=== PATIENT | female | born 1960 | race Caucasian/White ===

== ENCOUNTER 2016-09-20 22:59 | Inpatient (IN) | payer MEDICAID ==
[~2016-09-20] VITALS: Ht 162.6 cm; Wt 96.3 kg
[2016-09-21] VITALS (10 sets, daily range): BP systolic 131–182; RESP 16–18; TEMP 97.4–98.6; Ht 162.6 cm; Wt 96.3 kg
[2016-09-21] MEDS ORDERED: ASPIRIN 81 MG CHEW TAB ONE (04:18)
[2016-09-21] MEDS ORDERED: SALINE FLUSH 10 ML FLUSH PRN (04:30)
[2016-09-21] MEDS ORDERED: DEXTROSE 50% SYRINGE 50 ML IV PRN (04:30)
[2016-09-21] MEDS ORDERED: GLUCAGON 1 MG VIAL IM PRN (04:30)
[2016-09-21] MEDS: SODIUM CHLORIDE 0.9% FLUSH BAG 500 ML IV SCH (06:00)
[2016-09-21] MEDS: SALINE FLUSH 10 ML FLUSH SCH ×2 (08:20→20:49)
[2016-09-21] MEDS: Aspirin 325 MG TAB PO SCH (08:20)
[2016-09-21] MEDS ORDERED: Atorvastatin 20 MG TAB PO SCH (21:00)
[2016-09-22 03:55] VITALS: BP_SYST 136; RESP 18; TEMP 97.9
[2016-09-22] MEDS: SODIUM CHLORIDE 0.9% FLUSH BAG 500 ML IV SCH (04:45)
[2016-09-22 05:16] VITALS: BP_SYST 136; RESP 18; TEMP 97.9
[2016-09-22] MEDS: ACETAMINOPHEN 325 MG TAB PO PRN ×2 (06:17→14:07)
[2016-09-22 08:01] VITALS: BP_SYST 131; RESP 18; TEMP 97.9
[2016-09-22] MEDS: SALINE FLUSH 10 ML FLUSH SCH (08:43)
[2016-09-22] MEDS: Aspirin 325 MG TAB PO SCH (08:43)
[2016-09-22 12:00] VITALS: BP_SYST 145; RESP 18; TEMP 98
[2016-09-22] MEDS ORDERED: ASPIRIN EC 81 MG TAB PO SCH (15:42)
[2016-09-22 15:57] VITALS: BP_SYST 138; RESP 18; TEMP 98
[2016-09-22 16:59] VITALS: BP_SYST 138; RESP 18; TEMP 98
== END 2016-09-22 18:07 | disposition home or self-care (01) | DRG 66 ==
LOC: ENRESERVDT → ENRESERV → ENRESERVTM → ER 22:59 → EMR 23:00 → UNDOADMOB 09-21 04:09 → EMR 09-21 04:09 → PCU 09-21 05:12 → ENPENDDIS 09-21 15:30 → OBSVTOIN 09-21 15:30
PROVIDERS: ADMIT Family Medicine; ATTEND Family Medicine
DX: I63.9 Cerebral infarction, unspecified (principal); N18.3 Chronic kidney disease, stage 3 (moderate); I12.9 Hypertensive chronic kidney disease with stage 1 through stage 4 chronic kidney disease, or unspecified chronic kidney disease
CPT/HCPCS: 36415; 70450; 70551; 71010; 80053; 80061; 82553; 82947; 84484; 85025; 85384; 85610; 85730; 93005; 93306; 94799; 99220; 99239

== ENCOUNTER 2016-09-23 09:04 | Emergency (ER) | payer MEDICAID | END 2016-09-23 13:58 | disposition home or self-care (01) | LOC: ER 09:04 | DX: M79.622 Pain in left upper arm (principal); R20.9 Unspecified disturbances of skin sensation | CPT/HCPCS: 36415; 70551; 71010; 80053; 82553; 82947; 83690; 84484; 85025; 85610; 85730; 93005 ==